=== PATIENT | male | born 1965 | race Two or more races ===

== ENCOUNTER 2018-12-11 09:23 | Emergency (ER) | payer OTHER ==
[~2018-12-11] VITALS: Ht 172.7 cm; Wt 72.6 kg
--- NOTE | 2018-12-11 10:00 | NUR ---
patient came in to the ER c/o r knee pain, on room air, breathing evenly and unlabored. Kept comfortable, will continue to monitor accordingly.
--- NOTE | 2018-12-11 10:15 | NUR ---
PROVIDED WITH [employer] TRAINING PERFORMED BY KORY REDMOND
[2018-12-11 10:41] VITALS: BP 130/61
--- NOTE | 2018-12-11 10:43 | NUR ---
Patient discharged to home in stable condition. Written and verbal after care instructions given. Patient verbalizes understanding of instruction.
== END 2018-12-11 10:42 | disposition home or self-care (01) ==
LOC: ER 09:23
DX: S83.8X1A Sprain of other specified parts of right knee, initial encounter (principal); V19.88XA Pedal cyclist (driver) (passenger) injured in other specified transport accidents, initial encounter; Y93.55 Activity, bike riding; Y92.89 Other specified places as the place of occurrence of the external cause; Y99.8 Other external cause status
CPT/HCPCS: 73564-TC